=== PATIENT | female | born 1950 | race Caucasian/White ===

== ENCOUNTER 2024-01-26 16:41 | Outpatient (CLI) | payer MEDICARE, OTHER ==
--- NOTE | 2024-01-26 17:07 | XRAY Report ---
PROCEDURE: Hip w/Pelvis 2-3V RT INDICATIONS: RT HIP PX CHRONIC TECHNIQUE: 2 views of the hip were acquired. COMPARISON: None. FINDINGS: Bones: No fractures or dislocations. No suspicious bony lesions. Moderate bilateral degenerative hip joint space narrowing. Minimal particular osteophytes. No erosions. Soft tissues: No suspicious soft tissue calcifications or masses. IMPRESSION: Moderate bilateral hip arthritic change. Reviewed by: Edel Yan MD on 01/26/2024 5:06 PM PDT Approved by: Edel Yan MD on 01/26/2024 5:06 PM PDT Station ID: [id number]
== END 2024-01-26 16:42 | disposition home or self-care (01) ==
LOC: DI 16:41
PROVIDERS: ATTEND Nurse Practitioner Family
DX: M16.0 Bilateral primary osteoarthritis of hip (principal)

== ENCOUNTER 2024-07-17 10:54 | Observation (INO) ==
[2024-07-17 12:14] LABS: INR 1.2 (0.8-1.2); PT - PROTHROMBIN TIME 12.8 secs (9.9-12.6)
--- NOTE | 2024-07-17 13:17 | ED Physician Documentation ---
History of Present Illness Stated complaint Stated Complaint: LOW H&H Chief complaint Chief Complaint: General History obtained from History obtained from: Patient History of Present Illness Timing: Prior to arrival Additonal information Additional information: Patient is a 73-year-old female presenting to the emergency department for anemia patient had basic labs obtained for her PCP office and was noticeably anemic at 6.6. Patient has been anemic before about 2 years ago after having coronary artery disease with stent placed. She notes she had a transfusion at that time but was not having significant complications after that she was on iron orally for mild chronic anemia but no history of GI bleeds. Her last EGD and colonoscopy were in 2019. She has had significant past medical history with coronary artery bypass grafting 2022 with stents that were replaced about 6 months later she had incidental finding of renal cell carcinoma about 1 year ago with a right radical nephrectomy. Additionally this last year she had 3 coronary artery stents with interventional cardiology at . She notes she is on brachytherapy now for persistent occlusion to the stents from scar tissue. She notes no improvement from this intervention and continues to have some shortness of breath at baseline unsure of any black or bloody stool. Review of note from Dr. Waller: 5v-CABG in , and 6mo later she had an [place]/Coronary stent. She is on DAPT. She was diagnosed with RCC and had a robotic right radical nephrectomy in . No adjuvant therapy was recommended. This summer she had to have an additional 3 coronary angioplasty/stenting procedures (May, November & Dec 2023) for multiple reocclusions, leaving her with a complex coronary revascularization. Meds/Allgy Home Medications Ambulatory Orders Medication Instructions Recorded Confirmed atorvastatin 40 mg tablet 40 mg PO QDAY 03/10/24 07/14/24 clopidogrel 75 mg tablet 75 mg PO QDAY 03/10/24 07/14/24 empagliflozin 10 mg tablet 10 mg PO QDAY 03/10/24 07/14/24 (Jardiance) isosorbide mononitrate 30 mg mg PO 03/10/24 07/14/24 tablet,extended release 24 hr sitagliptin phosphate 100 mg 100 mg PO QDAY 03/10/24 07/14/24 tablet (Januvia) azelastine 137 mcg (0.1 %) nasal See Rx Instructions .Route 04/10/24 07/14/24 spray .COMPLEX #30 mL nitroglycerin 0.4 mg sublingual 0.4 mg sublingual Q5M PRN 04/13/24 07/14/24 tablet ropinirole 0.25 mg tablet 0.25 mg PO QDAY #90 tabs 04/13/24 07/14/24 trazodone 50 mg tablet 50 mg PO QDAY #90 tabs 04/13/24 07/14/24 aspirin 81 mg tablet,delayed 81 mg PO QDAY 04/29/24 07/14/24 release cetirizine 10 mg capsule (Zyrtec) 10 mg PO QDAY 04/29/24 07/14/24 cholecalciferol (vitamin D3) 50 50 mcg PO QDAY 04/29/24 07/14/24 mcg (2,000 unit) capsule cyanocobalamin (vitamin B-12) 100 1,000 mcg PO QDAY 04/29/24 07/14/24 mcg tablet glipizide 10 mg tablet, extended 10 mg PO BID 04/29/24 07/14/24 release 24 hr gabapentin 100 mg capsule 100 mg PO QDAY #90 caps 05/15/24 07/14/24 ipratropium bromide 21 mcg (0.03 2 spray intranasal BID PRN 05/28/24 07/14/24 %) nasal spray metformin 500 mg tablet,extended 500 mg PO TID 05/28/24 07/14/24 release 24 hr metoprolol succinate 25 mg 12.5 mg PO QDAY 05/28/24 07/14/24 tablet,extended release 24 hr levothyroxine 25 mcg tablet 25 mcg PO QDAY #90 tabs 06/23/24 07/14/24 (Synthroid) fluticasone propionate 50 1 spray intranasal QDAY #16 grams 07/02/24 07/14/24 mcg/actuation nasal spray,suspension hydroxyzine HCl 25 mg tablet 25 mg PO BID PRN anxiety #30 tabs 07/14/24 07/14/24 losartan 25 mg tablet 12.5 mg PO QDAY 07/14/24 07/14/24 spironolactone 25 mg tablet 12.5 mg PO QDAY 07/14/24 07/14/24 Allergies Allergies Allergy/AdvReac Type Severity Reaction Status Date / Time aspirin AdvReac Intermediate Rash Verified 07/17/24 11:12 Cephalosporins AdvReac Intermediate Nausea Verified 07/17/24 11:12 levofloxacin AdvReac Intermediate Rash Verified 07/17/24 11:12 Macrolide Antibiotics AdvReac Intermediate Nausea Verified 07/17/24 11:12 metronidazole AdvReac Intermediate Unknown Verified 07/17/24 11:12 Penicillins AdvReac Intermediate Rash Verified 07/17/24 11:12 Sulfa (Sulfonamide AdvReac Intermediate Rash Verified 07/17/24 11:12 Antibiotics) trimethoprim AdvReac Unknown Verified 07/17/24 11:12 beta blockers AdvReac Intermediate Nausea Uncoded 07/17/24 11:12 PFSH Active Problems All Active Problems (Updated 07/17/24 @ 18:58 by Karyn Mann MD) GI bleed (Acute) Anemia (Acute) Type 2 diabetes mellitus with hyperglycemia (Acute) Anxiety (Acute) Chronic sinusitis (Acute) URI (upper respiratory infection) (Acute) Cough (Acute) Nasal congestion (Acute) Sinus congestion (Acute) Anal pruritus (Acute) Medical History Medical History (Updated 07/17/24 @ 18:58 by Karyn Mann MD) History of renal cell carcinoma History of [place] (myocardial infarction) (~10/2022) Coronary artery disease due to calcified coronary lesion Cardiac insufficiency following cardiac surgery Hyperlipidemia Type 2 diabetes mellitus with peripheral neuropathy Hypertension TRISTAN (obstructive sleep apnea) Chronic kidney disease, stage 3b Hypothyroidism GERD with apnea without esophagitis Anemia, iron deficiency Chronic insomnia Allergic rhinitis Medication management contract agreement Personal history of adenomatous and serrated colon polyps Degenerative joint disease of right hip Skin lesions Screening for malignant neoplasm of colon Fecal soiling due to fecal incontinence Postmenopausal Post-nasal drainage Surgical History Surgical History (Updated 04/29/24 @ 15:29 by Kaya Waller DO) History of right radical nephrectomy (~08/2023) History of coronary artery stent placement (~10/2022) Multiple: , , November2023, . Complex coronary revascularization with recurrent occlusions S/P CABG x 5 (~05/2022) History of esophagogastroduodenoscopy (EGD) (~2019) small hiatal hernia History of colonoscopy with polypectomy (~2018) SSA; diverticulosis History of bilateral tubal ligation History of Family History Family History Other Alcohol abuse Alcoholism Anemia Anxiety Asthma CAD (coronary artery disease) Cancer Congenital heart disease Diabetes Heart attack High blood pressure Kidney disease Social History Social History Smoking Status: Never smoker Second hand tobacco smoke exposure: No Do you dip or chew tobacco?: No Do you vape?: No Patient requests smoking cessation consult: No Initiate information on smoking cessation: No Living arrangement: At home Marital Status: Living Condition: With spouse/s.o. Relationship: Level: Independent Do you feel safe in your home environment?: Yes Suffered physical, verbal, emotional, or financial abuse?: No History of Abuse: No ETOH Use: None Substance Use: denies use Are you sexually active?: No Control Method: None Retired: Yes Service: No Are you following a diet prescribed by a doctor: No Are you following a special diet: No Results Vitals Vitals: Vital Signs - 24 hr 07/17/24 11:12 07/17/24 14:27 07/17/24 14:43 Temperature 36.5 C 36.9 C 36.4 C L Temperature Source Tympanic Temporal Artery Scan Temporal Artery Scan Pulse Rate 65 Pulse Rate [Brachial] 64 64 Respiratory Rate 16 21 19 Blood Pressure 133/67 H Blood Pressure [Right Brachial artery] 111/49 L 113/56 L O2 Saturation 100 98 99 O2 Source Room air Room air Room air Sedation scale 0-Fully awake 0-Fully awake Pain Intensity 0 0 0 07/17/24 16:44 Temperature 36.2 C L Temperature Source Temporal Artery Scan Pulse Rate Pulse Rate [Brachial] 50 L Respiratory Rate 18 Blood Pressure Blood Pressure [Right Brachial artery] 109/46 L O2 Saturation 100 O2 Source Room air Sedation scale 0-Fully awake Pain Intensity 0 Oxygen O2 Source Room air Labs Labs: Microbiology 07/17/24 12:37 Occult Blood - Final Stool Laboratory Tests 07/17/24 07/17/24 07/17/24 09:15 11:49 14:17 PT 12.8 H INR 1.2 POC Whole Bld Glucose 159 Blood Type O POSITIVE Blood Type Recheck O POSITIVE Antibody Screen NEGATIVE Crossmatch IS Only See Detail PD Medical Decision Making ED course Complexity details: reviewed old records and reviewed results ED course: Patient is a 73-year-old female presenting to the emergency department for anemia patient had basic labs obtained for her PCP office and was noticeably anemic at 6.6. Patient has been anemic before about 2 years ago after having coronary artery disease with stent placed.Patient is symptomatic today but she notes she has been symptomatic for the few months of shortness of breath and lightheadedness. No hematemesis she has had some darker colored stools. Vitals here in the ED showed normotensive afebrile nontachycardic. Physical exam shows no abdominal tenderness guaiac test is positive for occult blood. Hemoglobin is 6.6 here in the ED patient consented for transfusion agreeable with this plan here in the ED. Patient received 1 unit of packed red blood cells. Patient Is on Plavix and clopidogrel for coronary artery disease she did have an episode back in May of 2 stents placed. We cannot discontinue her Plavix as it has been less than 6 months. I did discuss with cardiology [facility] with for possible transfer she notes they are boarding 35 in the waiting room. Given patient is stable and hemoglobin improved after 1 unit she is safe for admission to the hospital.She recommends rechecking hemoglobin in the morning and following up with her cardiology in the outpatient setting for colonoscopy as she has not had significant drop in hemoglobin from 7 back in May. I reviewed case with Dr. Rose has he does not feel if patient cannot have cardiology clearance patient should not be removed from her Plavix given she had stents within the last few months and we have a note from [facility] cardiology reporting she should not have clopidogrel removed for 3 months after the stents have been placed. In addition she is concerned for anesthesia given her significant coronary artery disease. I reviewed this with Dr. Mann who is in agreement for admission while during admission patient had episodes of bradycardia and Repeat EKG obtained it does show Mobitz type II on EKG no signs of complete heart block. Patient is again asymptomatic other than some lightheadedness that she has been experiencing while here. Discussed case again with Dr. Patel at cardiology who reviewed images and notes it is not Mobitz type I and she has been in this before. Discussed with Dr. Mann who is agreeable with this ipaln. Discharge Plan Discharge Patient Disposition: [facility] DC/Xfer Condition: Stable Clinical Impression: Anemia, GI bleed Interventions: ED Admission Assessment Last Done: 07/17/24 19:07
[2024-07-17] MEDS: MECLIZINE 12.5 MG TABLET PO STA (15:36)
--- NOTE | 2024-07-17 18:18 | HISTORY & PHYSICAL EXAMINATION ---
Chief Complaint Chief Complaint Chief Complaint: Anemia noted on labs History of Present Illness Admitted From Admitted From:: Home History Obtained From Records Reviewed: Yes History obtained from: Patient, patient's and daughter at bedside Exam Limitations: None History of Present Illness HPI Comment/Other: Patient is a 73-year-old female with a very complex cardiac history including a 5 vessel CABG done in 05/2022, CAD with recent stent placement including balloon angioplasty, brachytherapy to both LAD and RCA on 05/25/2024, currently on aspirin and Plavix who presents for hemoglobin of 6.6 noted at her primary care doctor's office. She went to see her primary care on 07/14 and had ordered labs, and was noted to have a hemoglobin of 6.6. As such, her primary care provider called her, and she was sent in. In the emergency room, blood work was repeatedhemoglobin is 6.6, hematocrit is 24.5. Her PT is 12.8, INR is 1.2. Her BUN is elevated at 24. Her creatinine is stable at her baseline of 1.2. Her iron was less than 10, TIBC was 606, transferrin is 433, and ferritin was 9.8. Initially, her heart rate was 65. When I was present in the room, her heart rate dropped down to as low as 30-40. EKG was repeated, it showed a type II Mobitz block. Blood pressure was low at 113/56, oxygen saturation was 99% on room air, and respiratory rate was 19-21. First, plan was to transfer patient to [facility] where her director of home economics is. However, they were full. They did not recommend a procedure at this time, as there should be no interruption in her aspirin/Plavix. As such, plan was to admit patient for anemia. She was to receive 1 unit of PRBCs, trend out her hemoglobin, receive IV iron. Meds/Allgy Home Medications Ambulatory Orders Medication Instructions Recorded Confirmed atorvastatin 40 mg tablet 40 mg PO QPM 03/10/24 07/18/24 clopidogrel 75 mg tablet 75 mg PO QDAY 03/10/24 07/18/24 empagliflozin 10 mg tablet 10 mg PO QDAY 03/10/24 07/18/24 (Jardiance) isosorbide mononitrate 30 mg 30 mg PO DAILY 03/10/24 07/18/24 tablet,extended release 24 hr sitagliptin phosphate 100 mg 100 mg PO QDAY 03/10/24 07/18/24 tablet (Januvia) azelastine 137 mcg (0.1 %) nasal See Rx Instructions .Route 04/10/24 07/18/24 spray .COMPLEX #30 mL nitroglycerin 0.4 mg sublingual 0.4 mg sublingual Q5M PRN chest 04/13/24 07/18/24 tablet pain cetirizine 10 mg capsule (Zyrtec) 10 mg PO DAILY PRN allergy symptoms 04/29/24 07/18/24 cholecalciferol (vitamin D3) 50 50 mcg PO QDAY 04/29/24 07/18/24 mcg (2,000 unit) capsule cyanocobalamin (vitamin B-12) 100 1,000 mcg PO QDAY 04/29/24 07/18/24 mcg tablet glipizide 10 mg tablet, extended 10 mg PO BID 04/29/24 07/18/24 release 24 hr metformin 500 mg tablet,extended 500 mg PO QDBREAKFAST 05/28/24 07/18/24 release 24 hr metoprolol succinate 25 mg 12.5 mg PO QDAY 05/28/24 07/18/24 tablet,extended release 24 hr levothyroxine 25 mcg tablet 25 mcg PO QDAY #90 tabs 06/23/24 07/18/24 (Synthroid) hydroxyzine HCl 25 mg tablet 25 mg PO BID PRN anxiety #30 tabs 07/14/24 07/14/24 losartan 25 mg tablet 12.5 mg PO QDAY 07/14/24 07/18/24 spironolactone 25 mg tablet 12.5 mg PO QDAY 07/14/24 07/18/24 aspirin 81 mg chewable tablet 81 mg PO DAILY 07/18/24 07/18/24 fluticasone propionate 50 1 spray intranasal DAILY PRN 07/18/24 07/18/24 mcg/actuation nasal allergy symptoms spray,suspension gabapentin 100 mg capsule 100 mg PO QPM 07/18/24 07/18/24 ropinirole 0.25 mg tablet 0.25 mg PO QPM 07/18/24 07/18/24 trazodone 50 mg tablet 50 mg PO QPM 07/18/24 07/18/24 Allergies Allergies Allergy/AdvReac Type Severity Reaction Status Date / Time aspirin AdvReac Intermediate Rash Verified 07/17/24 11:12 Cephalosporins AdvReac Intermediate Nausea Verified 07/17/24 11:12 levofloxacin AdvReac Intermediate Rash Verified 07/17/24 11:12 Macrolide Antibiotics AdvReac Intermediate Nausea Verified 07/17/24 11:12 metronidazole AdvReac Intermediate Unknown Verified 07/17/24 11:12 Penicillins AdvReac Intermediate Rash Verified 07/17/24 11:12 Sulfa (Sulfonamide AdvReac Intermediate Rash Verified 07/17/24 11:12 Antibiotics) trimethoprim AdvReac Unknown Verified 07/17/24 11:12 beta blockers AdvReac Intermediate Nausea Uncoded 07/17/24 11:12 PFSH Active Problems All Active Problems (Updated 07/17/24 @ 18:58 by Karyn Mann MD) GI bleed (Acute) Anemia (Acute) Type 2 diabetes mellitus with hyperglycemia (Acute) Anxiety (Acute) Chronic sinusitis (Acute) URI (upper respiratory infection) (Acute) Cough (Acute) Nasal congestion (Acute) Sinus congestion (Acute) Anal pruritus (Acute) Medical History Medical History (Updated 07/17/24 @ 18:58 by Karyn Mann MD) History of renal cell carcinoma History of [place] (myocardial infarction) (~10/2022) Coronary artery disease due to calcified coronary lesion Cardiac insufficiency following cardiac surgery Hyperlipidemia Type 2 diabetes mellitus with peripheral neuropathy Hypertension TRISTAN (obstructive sleep apnea) Chronic kidney disease, stage 3b Hypothyroidism GERD with apnea without esophagitis Anemia, iron deficiency Chronic insomnia Allergic rhinitis Medication management contract agreement Personal history of adenomatous and serrated colon polyps Degenerative joint disease of right hip Skin lesions Screening for malignant neoplasm of colon Fecal soiling due to fecal incontinence Postmenopausal Post-nasal drainage Surgical History Surgical History (Updated 04/29/24 @ 15:29 by Kaya Waller DO) History of right radical nephrectomy (~08/2023) History of coronary artery stent placement (~10/2022) Multiple: , , November2023, . Complex coronary revascularization with recurrent occlusions S/P CABG x 5 (~05/2022) History of esophagogastroduodenoscopy (EGD) (~2019) small hiatal hernia History of colonoscopy with polypectomy (~2018) SSA; diverticulosis History of bilateral tubal ligation History of Family History Family History Other Alcohol abuse Alcoholism Anemia Anxiety Asthma CAD (coronary artery disease) Cancer Congenital heart disease Diabetes Heart attack High blood pressure Kidney disease Social History Social History Smoking Status: Never smoker Second hand tobacco smoke exposure: No Do you dip or chew tobacco?: No Do you vape?: No Patient requests smoking cessation consult: No Initiate information on smoking cessation: No Living arrangement: At home Marital Status: Living Condition: With spouse/s.o. Relationship: Level: Independent Do you feel safe in your home environment?: Yes Suffered physical, verbal, emotional, or financial abuse?: No History of Abuse: No ETOH Use: None Substance Use: denies use Are you sexually active?: No Control Method: None Retired: Yes Service: No Are you following a diet prescribed by a doctor: No Are you following a special diet: No Review of Systems Constitutional Reports: Fatigue, Malaise, Weakness and Poor appetite; Denies: Fever, Chills, Diaphoresis, Night sweats or Weight gain Eyes Denies: Pain, Irritation, Amaurosis, Blurry vision or Floaters Ears, nose, mouth, and throat Denies: Ear pain, Ear discharge, Hearing loss, Hearing aids, Neck pain or Throat swelling Cardiovascular Reports: Irregular heart rate and swelling of feet/ankles; Denies: chest pain, palpitations, edema, Syncope, lightheadedness or shortness of breath with exertion Respiratory Denies: Shortness of breath, Cough, Sputum production or Change in phlegm color Gastrointestinal Reports: Abdominal pain, Abdominal distention and Nausea; Denies: Vomiting, Poor appetite, Bile emesis, Scott blood emesis, Coffee grounds in vomit or Heartburn Genitourinary Denies: Painful urination, Urinary frequency, Urinary urgency, Nocturia, Urinary incontinence or Decreased urine ouput Musculoskeletal Denies: Back pain, Neck pain, Extremity pain, Extremity swelling or Gout Integumentary/Breast Denies: Rash, Itching, Dryness, Redness or Skin pain Neurological Reports: Headache and General weakness; Denies: Focal weakness, Weakness in extremities or Numbness in extremities Psychiatric Denies: Depression, Anxiety, Mood swings, Panic attacks, Change in sleep pattern or Hopelessness Endocrine Reports: Polyphagia and Fatigue; Denies: Excessive urination, Excessive thirst or Cold intolerance Hematologic/Lymphatic Reports: Anemia and Easy bleeding; Denies: Easy bruising, Petechiae, Blood clots or Enlarged lymph nodes Allergic/Immunologic Denies: Hives, Throat swelling, Tongue swelling or Facial swelling Prior Level of Functionality: Fully independent of ADLs. Exam Constitutional normal general appearance, no apparent distress, abnormal body habitus (thin), no limitations and alert HENMT normocephalic, head/scalp atraumatic and hearing grossly normal bilaterally Eyes PERRL, EOMs intact bilaterally, conjunctivae normal and no scleral icterus Neck/C-Spine visual inspection normal, trachea midline and cervical spine nontender Lymph no lymphadenopathy noted Chest inspection of chest normal and palpation of chest normal Respiratory breath sounds equal bilaterally, normal respiratory effort, clear to auscultation bilaterally, no wheezes and no rales Cardiovascular heart rate abnormal (bradycardic), regular rhythm noted, no gallop, no rub, no murmur, no JVD and no edema Gastrointestinal abdomen normal to inspection, abdomen soft to palpation, nontender to palpation and distended (distension noted) Genitourinary no CVA tenderness and bladder normal to palpation Back/Pelvis spine normal to inspection and no thoracic spine tenderness Extremities normal to inspection and normal to palpation Neurology lawyer criminal II-XII intact, no movement abnormality noted and no focal motor deficit noted Psychiatry mental status grossly normal, oriented x3, thought process normal, cooperative and affect normal Skin skin color normal, no rash and no lesions Conclusion/Plan Problem List (1) GI bleed: Plan: Patient with dark stools over the last few weeks. She is on aspirin and Plavix due to recent cardiac stents placed in early May. She also has a history of known iron deficiency anemia. She is having some GI problems, and these increased when she takes oral iron, so she has not been able to tolerate it. Cardiology spoken with: Recommend continuing both of these at this time to the high risk of restenosis. Continue IV Protonix 40 mg twice daily. Likely slow GI bleed as patient has dropped her hemoglobin very slowly. It was 8.5 02/19/2024, then 7 point something according to your primary care provider in May. When she was admitted, it was 6.6. She received 1 unit PRBCs, and has improved to 7.6. She is not having any active bleeding at this time. Will give her IV iron, recheck her hemoglobin in the morning. If stable, will discharge her home tomorrow on aspirin, Plavix, Protonix. She will need a repeat hemoglobin done in 1 week. Warning signs of heavy GI bleed were explained to her, and she was advised to return if she noted any worsening. Qualifiers: GI bleed type/associated pathology: unspecified gastrointestinal hemorrhage type Qualified Code(s): K92.2 - Gastrointestinal hemorrhage, unspecified (2) Anemia: Plan: Total iron deficit 1361 mg today. Received one unit of blood which has about 250 mg of iron. Will also give IV iron to supplement her stores. Qualifiers: Anemia type: iron deficiency Iron deficiency anemia type: inadequate dietary iron intake Qualified Code(s): D50.8 - Other iron deficiency anemias (3) History of renal cell carcinoma: Plan: Status post nephrectomy. (4) Chronic kidney disease, stage 3b: Plan: Stable. (5) Coronary artery disease due to calcified coronary lesion: Plan: - History of 5 vessel CABG done in 05/2022, CAD with recent stent placement including balloon angioplasty, brachytherapy to both LAD and RCA on 05/25/2024, currently on aspirin and Plavix. Continued as per internet merchant reccomendations. (6) TRISTAN (obstructive sleep apnea): Plan: Continue CPAP use at home. (7) Hypertension: Plan: Continue Imdur. Losartan, Imdur currently held as patient is borderline hypotensive. Will re-introduce slowly. Qualifiers: Hypertension type: primary hypertension Qualified Code(s): I10 - Essential (primary) hypertension (8) Hyperlipidemia: Plan: Continue statin. Qualifiers: Hyperlipidemia type: unspecified Qualified Code(s): E78.5 - Hyperlipidemia, unspecified Lab Results Lab results reviewed: Yes 07/18/24 06:12 07/18/24 06:12 EKG Results EKG Interpreted Independently: Yes Core Measures Anticipated LOS I expect patient to be DC'd or transferred within 96 hours.: Yes DVT/VTE - Prophylaxis VTE/DVT Device ordered at admit?: Yes VTE/DVT Prophylaxis med ordered at admit?: No Not Ordered - Medical Reason: Contraindicated
[2024-07-17 18:36] LABS: HCT - HEMATOCRIT 26.5 % (37.0-47.0); HGB - HEMOGLOBIN 7.6 g/dL (12.0-16.0)
[2024-07-17] MEDS ORDERED: diphenhydrAMINE INJ 50 MG/ML VIAL IVP PRN (19:00)
[2024-07-17] MEDS ORDERED: HYDROcod/ACETAM 5/325 MG TABLET PO PRN (19:03)
[2024-07-17] MEDS ORDERED: ONDANSETRON ODT 4 MG TABLET TL PRN (19:03)
[2024-07-17] MEDS ORDERED: ONDANSETRON 4 MG/2 ML VIAL IVP PRN (19:03)
[2024-07-17] MEDS ORDERED: SODIUM CHLORIDE FLUSH 0.9% 10 ML SYRINGE IVP PRN (19:03)
[2024-07-17] MEDS ORDERED: ACETAMINOPHEN 325 MG TABLET PO PRN (19:03)
[2024-07-17] MEDS: traZODone 50 MG TABLET PO SCH (21:23)
[2024-07-17] MEDS: FLUTICASONE NASAL SPRAY NAS SCH (21:23)
[2024-07-17] MEDS: ASPIRIN EC 81 MG TABLET PO SCH (21:23)
[2024-07-17] MEDS: PANTOPRAZOLE 40 MG VIAL IVP SCH (21:24)
[2024-07-17] MEDS: IRON DEXTRAN 1,000 MG in SODIUM CHLORIDE 0.9% 250 ML IV ONE (21:24)
[2024-07-17] MEDS: SODIUM CHLORIDE FLUSH 0.9% 10 ML SYRINGE IVP SCH (23:42)
[2024-07-18 06:23] LABS: HCT - HEMATOCRIT 25.3 % (37.0-47.0); MEAN CORPUSCULAR HEMOGLOBIN 20.6 pg (27.0-31.0); MEAN CORPUSCULAR HGB CONC 27.7 g/dL (32.0-36.0); MEAN CORPUSCULAR VOLUME 74.4 fL (81.0-99.0); MEAN PLATELET VOLUME 11.2 fL (7.9-10.8); RED BLOOD COUNT 3.4 10^6/uL (4.20-5.40); RED CELL DISTRIBUTION WIDTH 19.2 % (12.0-15.0)
[2024-07-18 06:38] LABS: CALCIUM 8.7 mg/dL (8.5-10.3); CREATININE 1.1 mg/dL (0.6-1.3); POTASSIUM 3.7 mmol/L (3.5-4.5)
[2024-07-18 07:46] VITALS: O2SAT 96
[2024-07-18] MEDS ORDERED: FERROUS SULFATE 325 MG TABLET PO SCH (08:00)
[2024-07-18] MEDS: IRON DEXTRAN 1,000 MG in SODIUM CHLORIDE 0.9% 250 ML IV ONE (08:29)
[2024-07-18] MEDS: CLOPIDOGREL 75 MG TABLET PO SCH (08:30)
[2024-07-18] MEDS: ATORVASTATIN 40 MG TABLET PO SCH (08:30)
[2024-07-18] MEDS: LEVOTHYROXINE 25 MCG TABLET PO SCH (08:30)
[2024-07-18] MEDS: CYANOCOBALAMIN 500 MCG TABLET PO SCH (08:30)
[2024-07-18] MEDS: ISOSORBIDE MONONITRATE ER 30 MG TABLET PO SCH (08:30)
[2024-07-18] MEDS: SPIRONOLACTONE 25 MG TABLET PO SCH (08:30)
[2024-07-18] MEDS: rOPINIRole 0.25 MG TABLET PO SCH (08:31)
[2024-07-18] MEDS: CHOLECALCIFEROL 25 MCG TABLET PO SCH (08:31)
[2024-07-18] MEDS: GABAPENTIN 100 MG CAPSULE PO SCH (08:32)
[2024-07-18] MEDS: CETIRIZINE 10 MG TABLET PO SCH (08:32)
[2024-07-18] MEDS: SITAGLIPTIN PHOSPHATE 100 MG PO SCH ×2 (08:33→12:28)
[2024-07-18 11:59] VITALS: BP 112/54; TEMP 98.1
[2024-07-18] MEDS ORDERED: CETIRIZINE 10 MG TABLET PO PRN (12:03)
--- NOTE | 2024-07-18 12:13 | PROVIDER PROGRESS NOTE ---
Subjective Subjective Subjective: Patient feels about the same as yesterday. She has had 2 bowel movements overnight, both are brown, both with no blood in site. She has had some gas and distention, which are normal for her. She states her fatigue is about the same. She has no fevers or chills. She has no obvious bruising noted. Current Medications Current Medications Current Medications: Current Medications Generic Name Dose Route Start Last Admin Trade Name Freq PRN Reason Stop Dose Admin Acetaminophen 650 mg 07/17/24 19:03 Acetaminophen 325 Mg Tablet PO Q4HR PRN Pain 1 to 4, or Fever Hydrocodone Bitart/Acetaminophen 1 tab 07/17/24 19:03 Hydrocod/Acetam 5/325 Mg Tablet PO Q4HR PRN Pain 5 to 7 Aspirin 81 mg 07/17/24 19:03 07/18/24 08:30 Aspirin Ec 81 Mg Tablet PO 81 mg DAILY KRISTOFER Administration Atorvastatin Calcium 40 mg 07/18/24 21:00 Atorvastatin 40 Mg Tablet PO QPM KRISTOFER Cetirizine HCl 10 mg 07/18/24 12:03 Cetirizine 10 Mg Tablet PO DAILY PRN Allergy Symptoms Cholecalciferol 50 mcg 07/18/24 09:00 07/18/24 08:31 Cholecalciferol 25 Mcg Tablet PO 50 mcg DAILY KRISTOFER Administration Clopidogrel Bisulfate 75 mg 07/18/24 09:00 07/18/24 08:30 Clopidogrel 75 Mg Tablet PO 75 mg DAILY KRISTOFER Administration Cyanocobalamin 1,000 mcg 07/18/24 09:00 07/18/24 08:30 Cyanocobalamin 500 Mcg Tablet PO 1,000 mcg DAILY KRISTOFER Administration Diphenhydramine HCl 25 mg 07/17/24 19:00 Diphenhydramine Inj 50 Mg/Ml Vial IVP Q6H PRN Allergy Symptoms Fluticasone Propionate 1 sprays 07/17/24 19:03 07/18/24 08:29 Fluticasone Nasal Alvin ASHLY 1 spray DAILY KRISTOFER Administration Gabapentin 100 mg 07/18/24 21:00 Gabapentin 100 Mg Capsule PO QPM KRISTOFER Glipizide 10 mg 07/17/24 21:00 07/18/24 08:32 Glipizide Er 2.5 Mg Tablet PO 10 mg BID KRISTOFER Administration Isosorbide Mononitrate 30 mg 07/18/24 09:00 07/18/24 08:30 Isosorbide Mononitrate Er 30 Mg Tablet PO 30 mg DAILY KRISTOFER Administration Levothyroxine Sodium 25 mcg 07/18/24 09:00 07/18/24 08:30 Levothyroxine 25 Mcg Tablet PO 25 mcg DAILY KRISTOFER Administration Ondansetron HCl 4 mg 07/17/24 19:03 Ondansetron Odt 4 Mg Tablet TL Q6HR PRN Nausea / Vomiting Ondansetron HCl 4 mg 07/17/24 19:03 Ondansetron 4 Mg/2 Ml Vial IVP Q6HR PRN Nausea / Vomiting Pantoprazole Sodium 40 mg 07/17/24 21:00 07/18/24 08:29 Pantoprazole 40 Mg Vial IVP 40 mg BID KRISTOFER Administration Azelastine 137 Mcg ( 1 each 07/18/24 09:00 07/18/24 08:33 0.1 %) Alvin,Non- ASHLY Not Given Aerosol BID KRISTOFER Empagliflozin [ 1 each 07/18/24 09:00 07/18/24 08:33 Jardiance] 10 Mg PO Not Given Tablet DAILY KRISTOFER Sitagliptin 1 each 07/18/24 09:00 07/18/24 08:33 Phosphate [Januvia] PO Not Given 100 Mg Tablet DAILY KRISTOFER Ropinirole HCl 0.25 mg 07/18/24 21:00 Ropinirole 0.25 Mg Tablet PO QPM KRISTOFER Sodium Chloride 10 ml 07/17/24 19:03 Sodium Chloride Flush 0.9% 10 Ml Syringe IVP PRN PRN NEEDED PER PROVIDER ORDERS Sodium Chloride 10 ml 07/18/24 01:00 07/18/24 08:33 Sodium Chloride Flush 0.9% 10 Ml Syringe IVP 10 ml 0100,0900,1700 KRISTOFER Administration Spironolactone 12.5 mg 07/18/24 09:00 07/18/24 08:30 Spironolactone 25 Mg Tablet PO 12.5 mg DAILY KRISTOFER Administration Trazodone HCl 50 mg 07/18/24 21:00 Trazodone 50 Mg Tablet PO QPM [facility] Objective Vital Signs/Intake & Output Reviewed Vital Signs: Yes Vital Signs: Vital Signs x48h Temp Pulse Pulse Resp BP Pulse Ox 07/18/24 11:58 98.1 F 67 16 112/54 L 96 07/18/24 07:10 97.9 F 61 18 115/56 L 96 Intake & Output: Intake & Output 07/15/24 07/16/24 07/17/24 07/18/24 23:59 23:59 23:59 23:59 Intake Total 490 / 490 200 / 200 Balance 490 / 490 200 / 200 Weight (kg) 64 kg Objective General Appearance: positive No acute distress and Alert; negative Anxious Eyes Bilateral: positive Normal inspection, PERRL and EOMI ENT: positive ENT inspection nml, Pharynx nml and No signs of dehydration Neck: positive Nml inspection, Thyroid nml and No JVD Respiratory: positive Chest non-tender and No respiratory distress; negative Wheezes, Rales or Rhonchi Cardiovascular: positive Regular rate & rhythm, No murmur and No gallop Abdomen: positive Non-tender and Nml bowel sounds; negative No distention (slight distension noted), Rebound, Hepatomegaly, Splenomegaly or Mass Back: positive Nml inspection; negative CVA tenderness (R) or CVA tenderness (L) Skin: positive Color nml, No rash and Warm Extremities: positive Non-tender, Full ROM and No pedal edema Neurologic/Psychiatric: positive Oriented x3, Motor nml and Mood/affect nml Lab Results 07/18/24 06:12 07/18/24 06:12 Other Labs: Lab Results x24hrs 07/18/24 07/17/24 07/17/24 Range/Units 06:12 18:54 18:24 WBC 6.0 (4.8-10.8) x10^3/uL RBC 3.40 L (4.20-5.40) 10^6/uL Hgb 7.0 L* 7.6 L (12.0-16.0) g/dL Hct 25.3 L 26.5 L (37.0-47.0) % MCV 74.4 L (81.0-99.0) fL MCH 20.6 L (27.0-31.0) pg MCHC 27.7 L (32.0-36.0) g/dL RDW 19.2 H (12.0-15.0) % Plt Count 149 (130-450) 10^3/uL MPV 11.2 H (7.9-10.8) fL PT (9.9-12.6) secs INR (0.8-1.2) Sodium 139 (135-145) mmol/L Potassium 3.7 (3.5-4.5) mmol/L Chloride 107 (101-111) mmol/L Carbon Dioxide 27 (21-32) mmol/L Anion Gap 5.0 L (6-13) BUN 21 H (6-20) mg/dL Creatinine 1.1 (0.6-1.3) mg/dL Estimated GFR (MDRD) 49 L (>89) Glucose 96 (74-104) mg/dL POC Whole Bld Glucose 193 (70-100) mg/dL Calcium 8.7 (8.5-10.3) mg/dL Magnesium 2.0 (1.7-2.3) mg/dL Blood Type Antibody Screen Crossmatch IS Only 07/17/24 07/17/24 Range/Units 14:17 11:49 WBC (4.8-10.8) x10^3/uL RBC (4.20-5.40) 10^6/uL Hgb (12.0-16.0) g/dL Hct (37.0-47.0) % MCV (81.0-99.0) fL MCH (27.0-31.0) pg MCHC (32.0-36.0) g/dL RDW (12.0-15.0) % Plt Count (130-450) 10^3/uL MPV (7.9-10.8) fL PT 12.8 H (9.9-12.6) secs INR 1.2 (0.8-1.2) Sodium (135-145) mmol/L Potassium (3.5-4.5) mmol/L Chloride (101-111) mmol/L Carbon Dioxide (21-32) mmol/L Anion Gap (6-13) BUN (6-20) mg/dL Creatinine (0.6-1.3) mg/dL Estimated GFR (MDRD) (>89) Glucose (74-104) mg/dL POC Whole Bld Glucose 159 (70-100) mg/dL Calcium (8.5-10.3) mg/dL Magnesium (1.7-2.3) mg/dL Blood Type O POSITIVE Antibody Screen NEGATIVE Crossmatch IS Only See Detail Diagnostic Imaging Diagnostic Imaging Results: positive Final report reviewed Assessment/Plan Problem List (1) GI bleed: Impression: Patient with dark stools over the last few weeks. She is on aspirin and Plavix due to recent cardiac stents placed in early May. She also has a history of known iron deficiency anemia. She is having some GI problems, and these increased when she takes oral iron, so she has not been able to tolerate it. Cardiology spoken with: Recommend continuing both of these at this time to the high risk of restenosis. Continue IV Protonix 40 mg twice daily. Likely slow GI bleed as patient has dropped her hemoglobin very slowly. It was 8.5 02/19/2024, then 7 point something according to primary care provider in May. When she was admitted, it was 6.6. She received 1 unit PRBCs, and has improved to 7.6. This dropped again to 7.0 (has not received IV iron yet). She is not having any active bleeding at this time. Will give her IV iron at this time. If stable, will discharge her home tomorrow on aspirin, Plavix, Protonix. She will need a repeat hemoglobin done in 1 week. Warning signs of heavy GI bleed were explained to her, and she was advised to return if she noted any worsening. Qualifiers: GI bleed type/associated pathology: unspecified gastrointestinal hemorrhage type Qualified Code(s): K92.2 - Gastrointestinal hemorrhage, unspecified (2) Anemia: Impression: Total iron deficit 1361 mg today. Received one unit of blood which has about 250 mg of iron. Will also give IV iron, 1000mg IV dextran, to supplement her stores. Qualifiers: Anemia type: iron deficiency Iron deficiency anemia type: inadequate dietary iron intake Qualified Code(s): D50.8 - Other iron deficiency anemias (3) History of renal cell carcinoma: Impression: Status post nephrectomy. (4) Chronic kidney disease, stage 3b: Impression: Stable. (5) Coronary artery disease due to calcified coronary lesion: Impression: - History of 5 vessel CABG done in 05/2022, CAD with recent stent placement including balloon angioplasty, brachytherapy to both LAD and RCA on 05/25/2024, currently on aspirin and Plavix. - Continued as per optician apprentice dispensing recommendations. (6) TRISTAN (obstructive sleep apnea): Impression: Continue CPAP use at home. (7) Hypertension: Impression: Continue Imdur. Losartan, beta-tono currently held as patient is borderline hypotensive. Will re-introduce slowly. Qualifiers: Hypertension type: primary hypertension Qualified Code(s): I10 - Essential (primary) hypertension (8) Hyperlipidemia: Impression: Continue statin. Qualifiers: Hyperlipidemia type: unspecified Qualified Code(s): E78.5 - Hyperlipidemia, unspecified
--- NOTE | 2024-07-18 12:28 | PHARMACY PROGRESS NOTE ---
Best Possible Medication History Admit Date and Time: 07/17/241811 Home Medications Medication Instructions Recorded Confirmed Type atorvastatin 40 mg tablet 40 mg PO QPM 03/10/24 07/18/24 History clopidogrel 75 mg tablet 75 mg PO QDAY 03/10/24 07/18/24 History empagliflozin 10 mg tablet 10 mg PO QDAY 03/10/24 07/18/24 History (Jardiance) isosorbide mononitrate 30 mg 30 mg PO DAILY 03/10/24 07/18/24 History tablet,extended release 24 hr sitagliptin phosphate 100 mg 100 mg PO QDAY 03/10/24 07/18/24 History tablet (Januvia) azelastine 137 mcg (0.1 %) nasal See Rx Instructions .Route 04/10/24 07/18/24 Rx spray .COMPLEX #30 mL nitroglycerin 0.4 mg sublingual 0.4 mg sublingual Q5M PRN chest 04/13/24 07/18/24 History tablet pain cetirizine 10 mg capsule (Zyrtec) 10 mg PO DAILY PRN allergy symptoms 04/29/24 07/18/24 History cholecalciferol (vitamin D3) 50 50 mcg PO QDAY 04/29/24 07/18/24 History mcg (2,000 unit) capsule cyanocobalamin (vitamin B-12) 100 1,000 mcg PO QDAY 04/29/24 07/18/24 History mcg tablet glipizide 10 mg tablet, extended 10 mg PO BID 04/29/24 07/18/24 History release 24 hr metformin 500 mg tablet,extended 500 mg PO QDBREAKFAST 05/28/24 07/18/24 History release 24 hr metoprolol succinate 25 mg 12.5 mg PO QDAY 05/28/24 07/18/24 History tablet,extended release 24 hr levothyroxine 25 mcg tablet 25 mcg PO QDAY #90 tabs 06/23/24 07/18/24 Rx (Synthroid) hydroxyzine HCl 25 mg tablet 25 mg PO BID PRN anxiety #30 tabs 07/14/24 07/14/24 Rx losartan 25 mg tablet 12.5 mg PO QDAY 07/14/24 07/18/24 History spironolactone 25 mg tablet 12.5 mg PO QDAY 07/14/24 07/18/24 History aspirin 81 mg chewable tablet 81 mg PO DAILY 07/18/24 07/18/24 History fluticasone propionate 50 1 spray intranasal DAILY PRN 07/18/24 07/18/24 History mcg/actuation nasal allergy symptoms spray,suspension gabapentin 100 mg capsule 100 mg PO QPM 07/18/24 07/18/24 History ropinirole 0.25 mg tablet 0.25 mg PO QPM 07/18/24 07/18/24 History trazodone 50 mg tablet 50 mg PO QPM 07/18/24 07/18/24 History Processed by: Pharmacy Medications reviewed in ED?: No Medication History completed: Yes Patient Interview: Completed Secondary Source(s): Written medication list [facility] Statement: As the person ultimately responsible for medication therapy, providers are able to order a medication from an existing home medication list in [facility] via the "Reconcile Routine" prior to Confirmation of that medication by life support technician. Such practice is discouraged except when the physician, in their clinical judgment, deems that a medical need exists for a medication without regard to previous use.
[2024-07-18 14:08] LABS: HCT - HEMATOCRIT 26.2 % (37.0-47.0); HGB - HEMOGLOBIN 7.4 g/dL (12.0-16.0)
--- NOTE | 2024-07-18 14:40 | Discharge Summary ---
"Discharge Summary Admit Date: 07/17/24 Discharge Date: 07/18/24 Discharging Provider: Dr. Karyn Mann Primary Care Provider: Cheyenne Avendano Code Status: Attempt Resuscitation Discharge Facility Name: Home DIAGNOSES Admission Diagnoses: GI bleed Anemia History of renal cell carcinoma Chronic kidney disease, stage IIIb Coronary artery disease s/p 5 vessel CABG, recent stent placement in 05/2024 TRISTAN Hypertension Hyperlipidemia Discharge Diagnoses with Status of Each Condition: GI bleedpatient with subjective history of dark stools over the last week. She is on aspirin and Plavix due to recent cardiac stents placed in early May. She has a known history of iron deficiency anemia. Given 1 g of IV dextran, as well as 1 unit packed red blood cells. Her hemoglobin has been stable overnight, increased from 6.6-7.4. She has had 3 bowel movements, all of them brown with no bleeding. She has oral iron Gummies at home, and she was encouraged to eat these regularly. Will be discharging her on Protonix for GI prophylaxis as she is on aspirin and Plavix. She needs to follow-up in 1 week and get her hemoglobin rechecked. Social work is working on getting her an appointment with her primary care provider. She already has a cardiology appointment for this Saturday. Anemiasee above. History of renal cell carcinomastatus post nephrectomy. Chronic kidney disease, stage IIIbstable creatinine. Coronary artery diseasehistory of 5 vessel CABG done in 06/11, CAD with recent stent placement. Currently on aspirin and Plavix. Continued as per glass beveller recommendations. OSAcontinue CPAP use. Hypertensioncontinued her spironolactone, Imdur while inpatient. Advised to continue her losartan as it is a very low dose. Her metoprolol was held while she was here. I told her to check her pulse, and it was less than 60 to continue to hold it. HPI History of Present Illness: Patient is a 73-year-old female with a very complex cardiac history including a 5 vessel CABG done in 05/2022, CAD with recent stent placement including balloon angioplasty, brachytherapy to both LAD and RCA on 05/25/2024, currently on aspirin and Plavix who presents for hemoglobin of 6.6 noted at her primary care doctor's office. She went to see her primary care on 07/14 and had ordered labs, and was noted to have a hemoglobin of 6.6. As such, her primary care provider called her, and she was sent in. In the emergency room, blood work was repeatedhemoglobin is 6.6, hematocrit is 24.5. Her PT is 12.8, INR is 1.2. Her BUN is elevated at 24. Her creatinine is stable at her baseline of 1.2. Her iron was less than 10, TIBC was 606, transferrin is 433, and ferritin was 9.8. Initially, her heart rate was 65. When I was present in the room, her heart rate dropped down to as low as 30-40. EKG was repeated, it showed a type II Mobitz block. Blood pressure was low at 113/56, oxygen saturation was 99% on room air, and respiratory rate was 19-21. First, plan was to transfer patient to [facility] where her mail sorter and delivery is. However, they were full. They did not recommend a procedure at this time, as there should be no interruption in her aspirin/Plavix. As such, plan was to admit patient for anemia. She was to receive 1 unit of PRBCs, trend out her hemoglobin, receive IV iron. CONSULTS | PROCEDURES Consultations: Cardiology ([facility]) Procedures: IV dextran infusion HOSPITAL COURSE Hospital Course: Patient is a 73-year-old female with a history of iron deficiency anemia, CAD with recent stents placed in May 2024 on aspirin and Plavix. She presented after her primary care provider noticed that her hemoglobin was 6.6 on routine labs. When the patient was spoken with, she states that her bowel movements have been darker than usual at home, but there was no nikki blood in them. She has had a colonoscopy and EGD done about 7 years ago, but she cannot recall the results. The emergency room physicians did speak with her glass beveller at [facility]. They recommended continuing aspirin and Plavix at this time as there is a high risk of restenosis. She was given 1 unit packed red blood cells. She had tube further bowel movements here, which were brown, with no blood in them. Her hemoglobin remained stable after that unit of blood. She also received a gram of IV dextran. She is oral iron at home, and she was advised to continue taking this. She will also be discharged on Protonix 40 mg twice a day. She was advised extensively to follow-up with her primary care provider, Cheyenne Avendano, in 1 week to recheck her labs. Social work will help coordinate this. She also already has a appointment with her glass beveller. During her stay here, she was found to be bradycardic down to the 30s and 40s. She does have a history of a Mobitz type I Wenckebach heart block. She is on metoprolol daily. She was advised to hold it if her heart rate was less than 60. She was advised to let her glass beveller know about this. Overall, patient was asymptomatic, had no signs of a GI bleed. Anemia was attributed to her iron deficiency, likely. She was deemed stable for discharge home with very close follow-up. ALLERGIES Allergies Allergy/AdvReac Type Severity Reaction Status Date / Time aspirin AdvReac Intermediate Rash Verified 07/17/24 11:12 Cephalosporins AdvReac Intermediate Nausea Verified 07/17/24 11:12 levofloxacin AdvReac Intermediate Rash Verified 07/17/24 11:12 Macrolide Antibiotics AdvReac Intermediate Nausea Verified 07/17/24 11:12 metronidazole AdvReac Intermediate Unknown Verified 07/17/24 11:12 Penicillins AdvReac Intermediate Rash Verified 07/17/24 11:12 Sulfa (Sulfonamide AdvReac Intermediate Rash Verified 07/17/24 11:12 Antibiotics) trimethoprim AdvReac Unknown Verified 07/17/24 11:12 beta blockers AdvReac Intermediate Nausea Uncoded 07/17/24 11:12 MEDICATIONS Ambulatory Orders Medication Instructions Recorded Confirmed atorvastatin 40 mg tablet 40 mg PO QPM 03/10/24 07/18/24 clopidogrel 75 mg tablet 75 mg PO QDAY 03/10/24 07/18/24 empagliflozin 10 mg tablet 10 mg PO QDAY 03/10/24 07/18/24 (Jardiance) isosorbide mononitrate 30 mg 30 mg PO DAILY 03/10/24 07/18/24 tablet,extended release 24 hr sitagliptin phosphate 100 mg 100 mg PO QDAY 03/10/24 07/18/24 tablet (Januvia) azelastine 137 mcg (0.1 %) nasal See Rx Instructions .Route 04/10/24 07/18/24 spray .COMPLEX #30 mL nitroglycerin 0.4 mg sublingual 0.4 mg sublingual Q5M PRN chest 04/13/24 07/18/24 tablet pain cetirizine 10 mg capsule (Zyrtec) 10 mg PO DAILY PRN allergy symptoms 04/29/24 07/18/24 cholecalciferol (vitamin D3) 50 50 mcg PO QDAY 04/29/24 07/18/24 mcg (2,000 unit) capsule cyanocobalamin (vitamin B-12) 100 1,000 mcg PO QDAY 04/29/24 07/18/24 mcg tablet glipizide 10 mg tablet, extended 10 mg PO BID 04/29/24 07/18/24 release 24 hr metformin 500 mg tablet,extended 500 mg PO QDBREAKFAST 05/28/24 07/18/24 release 24 hr metoprolol succinate 25 mg 12.5 mg PO QDAY 05/28/24 07/18/24 tablet,extended release 24 hr levothyroxine 25 mcg tablet 25 mcg PO QDAY #90 tabs 06/23/24 07/18/24 (Synthroid) hydroxyzine HCl 25 mg tablet 25 mg PO BID PRN anxiety #30 tabs 07/14/24 07/14/24 losartan 25 mg tablet 12.5 mg PO QDAY 07/14/24 07/18/24 spironolactone 25 mg tablet 12.5 mg PO QDAY 07/14/24 07/18/24 aspirin 81 mg chewable tablet 81 mg PO DAILY 07/18/24 07/18/24 fluticasone propionate 50 1 spray intranasal DAILY PRN 07/18/24 07/18/24 mcg/actuation nasal allergy symptoms spray,suspension gabapentin 100 mg capsule 100 mg PO QPM 07/18/24 07/18/24 pantoprazole 40 mg tablet,delayed 40 mg PO BID #60 tabs 07/18/24 release (Protonix) ropinirole 0.25 mg tablet 0.25 mg PO QPM 07/18/24 07/18/24 trazodone 50 mg tablet 50 mg PO QPM 07/18/24 07/18/24 PHYSICAL EXAM AT DISCHARGE General Appearance: positive No acute distress and Alert; negative Anxious Eyes Bilateral: positive Normal inspection, PERRL and EOMI ENT: positive ENT inspection nml, Pharynx nml and No signs of dehydration Neck: positive Nml inspection, Thyroid nml and No JVD Respiratory: positive Chest non-tender, No respiratory distress and Breath sounds nml Cardiovascular: positive No murmur, No gallop and Bradycardia Peripheral Pulses: positive 2+ Abdomen: positive Non-tender, No organomegaly and Nml bowel sounds; negative Hepatomegaly or Splenomegaly Back: positive Nml inspection; negative CVA tenderness (R) or CVA tenderness (L) Skin: positive Color nml, No rash, Warm and Dry Extremities: positive Non-tender, Full ROM and Nml appearance Neurologic/Psychiatric: positive Oriented x3 and Mood/affect nml LABS 07/18/24 14:02 07/18/24 06:12 DIAGNOSTIC IMAGING Diagnostic Imaging Results: Final report reviewed QUALITY (Female Hip Fx Only) Was patient sent home on osteoporosis medication?: Yes FOLLOW UP Follow Up: Follow-up with primary care provider. Follow-up with glass beveller. Follow-up with atm mechanic. TIME SPENT Time Spent in Discharge (Minutes): 35 Discharge Plan Discharge Patient Disposition: Home, Self Care Condition: Stable Prescriptions: New pantoprazole [Protonix] 40 mg tablet,delayed release (DR/EC) 40 mg PO BID Qty: 60 0RF Continued azelastine 137 mcg (0.1 %) spray,non-aerosol See Rx Instructions .ROUTE .COMPLEX Qty: 30 6RF Dose Instruction: USE 1 SPRAY NASALLY TWICE A DAY Rx Instructions: USE 1 SPRAY NASALLY TWICE A DAY levothyroxine [Synthroid] 25 mcg tablet 25 mcg PO QDAY Qty: 90 1RF aspirin 81 mg tablet,chewable 81 mg PO DAILY trazodone 50 mg tablet 50 mg PO QPM ropinirole 0.25 mg tablet 0.25 mg PO QPM gabapentin 100 mg capsule 100 mg PO QPM fluticasone propionate 50 mcg/actuation spray,suspension 1 spray intranasal DAILY PRN (Reason: allergy symptoms) cholecalciferol (vitamin D3) 50 mcg (2,000 unit) capsule 50 mcg PO QDAY glipizide 10 mg tablet extended release 24hr 10 mg PO BID Januvia 100 mg tablet 100 mg PO QDAY atorvastatin 40 mg tablet 40 mg PO QPM clopidogrel 75 mg tablet 75 mg PO QDAY Jardiance 10 mg tablet 10 mg PO QDAY isosorbide mononitrate 30 mg tablet extended release 24 hr 30 mg PO DAILY metformin 500 mg tablet extended release 24 hr 500 mg PO QDBREAKFAST nitroglycerin 0.4 mg tablet, sublingual 0.4 mg sublingual Q5M PRN (Reason: chest pain) Rx Instructions: do not exceed 3 doses per episode Zyrtec 10 mg capsule 10 mg PO DAILY PRN (Reason: allergy symptoms) cyanocobalamin (vitamin B-12) 100 mcg tablet 1,000 mcg PO QDAY spironolactone 25 mg tablet 12.5 mg PO QDAY losartan 25 mg tablet 12.5 mg PO QDAY hydroxyzine HCl 25 mg tablet 25 mg PO BID PRN (Reason: anxiety) Qty: 30 3RF Held metoprolol succinate 25 mg tablet extended release 24 hr 12.5 mg PO QDAY Hold Instructions: Resume on 07/24/24. Hold if heart rate is less than 60. Please let your glass beveller know that your heart rate was down to the 30s-40s when you see them next. Diet: Cardiac Health Concerns: You came in because your primary care provider, Cheyenne Avendano, noted that you had a low hemoglobin on your labs, of 6.6. You have a severe iron deficiency. You are given a unit of blood, as well as IV iron to help supplement your stores. While you have been here, you have had a few bowel movements without any blood in them. Your blood levels have been stable. 1. We talked about the importance of taking your oral iron at home. I would like you to follow-up with your primary care provider, Cheyenne Avendano, in approximately a week, to get your blood levels rechecked. Our social human services assistants has reached out to them, and will follow-up with you as well to make sure this appointment is made. 2. Please take Protonix 40 mg twice a day. 3. Your heart rate was on the slower side while you are here. Please check your heart rate prior to taking your metoprolol 12.5 mg daily. If it is less than 60, please hold it for the day. Please let your glass beveller know that your heart rate has been running slow. I understand you have an appointment with them this Saturday. 4. Please continue to look out for signs of bleeding from your GI tract including dark stools, blood in your stools, lightheadedness, dizziness, severe abdominal pain. 5. Please continue regular follow-up with your primary care provider, your glass beveller, as well as your atm mechanic. We are glad you are feeling better, thank you for allowing us to take care of you. Print Language: Palestinian Patient Instructions: Bleeding Gastrointestinal Ch, Anemia Iron Deficiency Ch Stand Alone Forms: PCP List Follow-up Care: Cheyenne Avendano FNP [Primary Care Provider] -"
[2024-07-18] MEDS ORDERED: rOPINIRole 0.25 MG TABLET PO SCH (21:00)
[2024-07-18] MEDS ORDERED: traZODone 50 MG TABLET PO SCH (21:00)
[2024-07-18] MEDS ORDERED: ATORVASTATIN 40 MG TABLET PO SCH (21:00)
[2024-07-18] MEDS ORDERED: GABAPENTIN 100 MG CAPSULE PO SCH (21:00)
== END 2024-07-18 16:20 | disposition home or self-care (01) ==
LOC: MS2 10:54 → ED 10:54 → MS2 19:07
PROVIDERS: ADMIT Internal Medicine; ATTEND Internal Medicine
DX: I25.10 Atherosclerotic heart disease of native coronary artery without angina pectoris; E11.42 Type 2 diabetes mellitus with diabetic polyneuropathy; Z95.5 Presence of coronary angioplasty implant and graft; Z79.82 Long term (current) use of aspirin; E78.5 Hyperlipidemia, unspecified; N18.32 Chronic kidney disease, stage 3b; Z95.1 Presence of aortocoronary bypass graft; E11.22 Type 2 diabetes mellitus with diabetic chronic kidney disease; D50.8 Other iron deficiency anemias; R10.9 Unspecified abdominal pain; K92.2 Gastrointestinal hemorrhage, unspecified; Z79.02 Long term (current) use of antithrombotics/antiplatelets; G47.33 Obstructive sleep apnea (adult) (pediatric); I25.84 Coronary atherosclerosis due to calcified coronary lesion; I12.9 Hypertensive chronic kidney disease with stage 1 through stage 4 chronic kidney disease, or unspecified chronic kidney disease; R00.1 Bradycardia, unspecified; E03.9 Hypothyroidism, unspecified; I44.1 Atrioventricular block, second degree; Z79.84 Long term (current) use of oral hypoglycemic drugs